=== PATIENT | female | born 1975 | race Caucasian/White ===

== ENCOUNTER 2025-03-07 11:14 | Emergency (ER) | payer OTHER ==
[~2025-03-07] VITALS: Ht 162.6 cm; Wt 67.9 kg
[2025-03-07] MEDS: triamcinolone acetonide 40mg/ml inj IM ONE (13:32)
[2025-03-07] MEDS ORDERED: METH4TAB81 PO (13:52)
[2025-03-07 13:59] VITALS: BP 116/60; PULSE 67; RESP 16; TEMP 97.2; O2SAT 98
== END 2025-03-07 13:57 | disposition home or self-care (01) ==
LOC: ER 11:14
DX: J30.89 Other allergic rhinitis (principal); H10.13 Acute atopic conjunctivitis, bilateral
CPT/HCPCS: 96372; 99283; J3301

== ENCOUNTER 2025-09-24 14:37 | Emergency (ER) | payer OTHER ==
[~2025-09-24] VITALS: Ht 165.1 cm; Wt 83.9 kg
[~2025-09-24 14:37] MED LIST: METH4TAB81 PO
[2025-09-24] MEDS ORDERED: CEPH-585 PO (15:13)
--- NOTE | 2025-09-24 15:13 | Physician Documentation ---
History of Present Illness ~ Chief Complaint: Urinary Symptoms Stated Complaint: URINARY COMPLICATIONS Time Seen by MD: 15:01 HPI 49-year-old female who presents to the emergency department with complaints of UTI. Reports frequency, dysuria This is an otherwise healthy, well-appearing patient presenting with back pain. Patients does not have any high-risk features on history [Trauma, IVDA, cancer, significant weight loss or history of TB], and the patient has a normal neurologic exam without [fever, severe or progressive n eurologic deficits, new or worsening urinary retention, urinary/stool incontinence or decreased perineal sensation]; therefore imaging was not indicated in the ED. I doubt spinal fracture, epidural hematoma, epidural abscess, unstable spinal pathology, emergent renal or aortic pathology, or spinal cord compression. Upon discharge, the patients pain was controlled, and they had improved mobility. I recommended both non-pharmacologic and non-opioid pharmacologic therapies as the patient does not have active cancer, nor do they currently qualify for palliative or end of life care. [Patient was prescribed narcotics as their pain is refractory to other medications AND there is concern for a herniated disk, fracture, sciatica or radiculopathy.] Patient is aware that the purpose of this visit was to screen for an acute medical emergency requiring emergent stabilization. Chronic conditions, including malignancies, have not been ruled out. Patient is instructed to follow-up with a PCP and/or orthopedic surgeon as directed in discharge instructions for continued care and work-up. Return precautions were discussed including worsening pain, new/worsening weakness/numbness, difficulty urinating, incontinence, or any other worsening/concerning symptoms. If unable to arrange follow-up, they have been instructed to return to the ED for reassessment. Patient was given verbal and written discharge instructions and acknowledges understanding Medication Reconciliation Allergies: Coded Allergies: No Known Allergies (Unverified , 03/07/25) Scheduled Cephalexin*Monohydrate* (Keflex*), 1 CAP PO Q12H Methylprednisolone (Medrol Dosepak), 0 PO UD Review of Systems All Other Systems at this time: Reviewed and Negative Constitutional: Reports: chills Genitourinary: Reports: burning, frequency, flank pain, hematuria Physical Exam Vital Signs: RN Vital Signs have been reviewed: Yes, Temperature: 98.1, Source: Oral, Heart Rate: 73, Respiratory Rate: 16, BP: 139/89, Pulse Oximetry: 98, Weight: 83.900 Oxygen Flow Rate: 0 General Appearance: alert, WD/WN, mild distress EENT: PERRL/EOMI Neck: normal inspection Respiratory: lungs clear Chest: no accessory muscle use Cardiovascular: normal peripheral pulses, regular rate, rhythm Gastrointestinal: other (Suprapubic discomfort) Back: CVA tenderness (R), CVA tenderness (L) Extremities: normal range of motion Neurologic: oriented x4 Psychiatric: normal mood/affect Skin: normal color Lymphatic: no adenopathy Progress Results/Orders Results/Orders Completed Orders - JACE RUTHERFORD PAC Ceftriaxone Im Kit W/Lidocaine (Rocephin (09/24/25 15:15) Vital Signs 09/24/25 09/24/25 14:52 15:43 Temp 98.1 97.6 Pulse 73 73 Resp 16 16 B/P (MAP) 139/89 124/76 Pulse Ox 98 98 O2 Flow Rate 0 Laboratory Tests Test 09/24/25 14:55 Urine Specimen Description Cln catch midstream Urine Color Yellow Urine Clarity Slightly cloudy Urine pH 6.0 Urine Specific [place] >=1.030 Urine Protein Negative Urine Glucose (UA) Negative Urine Ketones Negative Urine Occult Blood Negative Urine Nitrite Negative Urine Bilirubin Negative Urine Urobilinogen 0.2 Urine Leukocyte Esterase Small H Urine RBC 0-2 Urine WBC 5-10 H Urine Squamous Epithelial Cells Moderate Urine Bacteria 2+ Urine Mucus Few Urine Culture Indicated Not ind Volume Urine Centrifuged 10 ml Urine HCG, Qualitative Negative Urine Comment Medical Decision Making Additional information obtaine: N/A Findings Examination history consistent with a UTI with early pyelonephritis . We will provide ceftriaxone injection the patient to continue with Keflex. Strict aftercare instructions to follow up and/or return if symptoms worsen. Urinary Diff Dx:Considerations: Include: Urinary Obstruction, Urolithiasis, Urinary retention, UTI Genital Diff Dx:Considerations: Include: Other Departure Disposition: HOME / SELF CARE / HOMELESS Impression: Primary Impression: Acute urinary tract infection Discharge Instructions: Urinary Tract Infection, Adult Additional Instructions: Today in the emergency department you received the injection ceftriaxone. Your examination history is consistent with a urinary tract infection. Please obtain prescription for antibiotic and begin as directed. Make follow up appointment with your [facility] physician and to return if worse. Thank you for visiting emergency department [facility]. Referrals: NO PRIMARY CARE PROVIDER (PCP) Prescriptions Cephalexin*Monohydrate* (Keflex*) 500 Mg Capsule 1 CAP PO Q12H for 10 Days, #20 CAP Prov: JACE RUTHERFORD PAC 09/24/25 Education Educated: Patient Educated regarding: diagnosis, treatment, prognosis, need for follow up Signature Scribe Signature: . Attestation: . JACE RUTHERFORD PAC Sep 24, 2025 15:13
[2025-09-24] MEDS: CefTRIAXone 1000mg IM Kit (w/lidocaine diluent) IM ONE (15:40)
[2025-09-24 15:43] VITALS: BP 124/76; PULSE 73; RESP 16; TEMP 97.6; O2SAT 98
[2025-09-24 15:50] LABS: LEUKOCYTE ESTERASE ,URINE SMALL (Neg); NITRITES, URINE NEGATIVE (Neg); OCCULT BLOOD,URINE NEGATIVE (Neg); URINE HCG NEGATIVE (NEG)
[2025-09-24 15:56] LABS: UA COLLECTION TYPE CLN CATCH MIDSTREAM
[2025-09-24 15:57] LABS: SQUAMOUS EPITHELIAL CELL,UR MODERATE /LPF (FEW)
[2025-09-24 15:58] LABS: MUCUS STRANDS FEW /LPF (Neg)
== END 2025-09-24 15:44 | disposition home or self-care (01) ==
LOC: ER 14:37
DX: N39.0 Urinary tract infection, site not specified (principal); Z79.899 Other long term (current) drug therapy
CPT/HCPCS: 81001; 81025; 96372; 99283; J0696

== ENCOUNTER 2025-11-18 06:59 | Emergency (ER) | payer OTHER ==
[~2025-11-18] VITALS: Ht 165.1 cm; Wt 86.6 kg
[2025-11-18 07:03] VITALS: BP 154/98; PULSE 72; RESP 16; O2SAT 98
--- NOTE | 2025-11-18 11:08 | Physician Documentation ---
History of Present Illness ~ Chief Complaint: See Chief Complaint Stated Complaint: ALLERGY Time Seen by MD: 10:07 Primary Medical Doctor: Jr MOSS This is a 49-year-old female with a history of seasonal allergies who presents with several weeks of progressively worsening rhinorrhea, nasal congestion, and watery itchy eyes consistent with previous allergy symptoms without cough or fever. Patient reports that in the past she has received a Kenalog injection with good results and is requesting Kenalog injection. 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 Medication Reconciliation Allergies: Coded Allergies: No Known Allergies (Unverified , 11/18/25) Scheduled Methylprednisolone (Medrol Dosepak), 0 PO UD Review of Systems ROS As stated above in the HPI, otherwise all systems are reviewed and negative. Physical Exam Vital Signs: Temperature: 97.8, Source: Temporal, Heart Rate: 72, Respiratory Rate: 16, BP: 154/98, Pulse Oximetry: 98, Weight: 86.600 Oxygen Flow Rate: 0 Physical Exam VITALS: Reviewed and as above. GENERAL: Alert, nontoxic appearing, no apparent distress. HEENT: No facial swelling, conjunctiva minimally injected RESPIRATORY: No increased work of breathing, no respiratory distress, speaking in full clear sentences, clear lung sounds in all christopher CV: Regular rate and rhythm no murmur Progress Results/Orders Results/Orders Completed Orders - AMIRA CHEEK [employer]IST[employer] Triamcinolone Acet 40mg/Ml Inj (Kenalog- (11/18/25 11:05) Vital Signs 11/18/25 11/18/25 07:03 11:19 Temp 97.8 97.8 Pulse 72 Resp 16 B/P (MAP) 154/98 Pulse Ox 98 O2 Flow Rate 0 Medical Decision Making Additional information obtaine: old records Findings This otherwise well-appearing 49-year-old female with a history of seasonal allergies presented requesting Kenalog injection due to allergy symptoms including progressively worsening nasal congestion, rhinorrhea, and watery itchy eyes. It was reassuring patient reported no other symptoms to suggest upper respiratory tract infection or pneumonia including no cough, fever, chest pain, or difficulty breathing. Given patient's history of receiving Kenalog injections with good effect patient will receive a Kenalog injection today and be discharged to follow up with the primary care provider as she is otherwise well-appearing and hemodynamically stable and appropriate for outpatient follow up. Patient provided careful return to care precautions and follow up instructions which she verbalized understanding of. Differential Dx:Considerations: Include: Allergic rhinitis, Influenza, Otitis media, Peritonsillar abscess, Pharyngitis-Diphtheria, Pharyngitis-Streptoccal, Pharyngitis-Viral, Pnuemonitis, Sinusitis, URI Departure Time of Disposition: 11:07 Disposition: 01 HOME / SELF CARE / HOMELESS Impression: Primary Impression: Allergic rhinitis Qualified Codes: J30.2 - Other seasonal allergic rhinitis Condition: Improved Additional Instructions: Follow up with her primary care provider and hospitality job [employer] for further management of your seasonal allergies. Please follow up with your primary care provider in the next few days. Please return to the emergency department for any new or worsening concerning symptoms. Referrals: NO PRIMARY CARE PROVIDER (PCP) Education Educated: Patient Educated regarding: diagnosis, treatment, prognosis, need for follow up Signature Scribe Signature: No scribe Attestation: The note accurately reflects work and decisions made by me.CURTIS Martinez 11/18/25 11:08 AMIRA CHEEK Nov 18, 2025 11:08
[2025-11-18] MEDS: triamcinolone acetonide 40mg/ml inj IM ONE (11:18)
[2025-11-18 11:19] VITALS: TEMP 97.8
== END 2025-11-18 11:20 | disposition home or self-care (01) ==
LOC: ER 06:59
DX: J30.9 Allergic rhinitis, unspecified (principal)
CPT/HCPCS: 96372; 99283; J3301